=== PATIENT | female | born 1975 | race Caucasian/White ===

== ENCOUNTER 2017-10-30 06:26 | Day surgery (SDC) | payer BC ==
[~2017-10-30] VITALS: Ht 149.9 cm; Wt 50.3 kg
[~2017-10-30 06:26] MED LIST: BUSPAR7.5 MG PO; IMITREX25 MG PO; NO HOME MEDS
[2017-10-30 06:45] VITALS: BP 104/56
[2017-10-30 10:10] VITALS: BP 112/57
[2017-10-30 10:49] VITALS: BP 120/58
== END 2017-10-30 11:09 | disposition home or self-care (01) ==
LOC: SDC 06:26
PROC: 0UBC8ZX Excision of Cervix, Via Natural or Artificial Opening Endoscopic, Diagnostic (ICD-10-PCS; principal; 2017-10-30)
DX: D06.9 Carcinoma in situ of cervix, unspecified (principal); E06.3 Autoimmune thyroiditis; Z97.5 Presence of (intrauterine) contraceptive device; Z87.891 Personal history of nicotine dependence
CPT/HCPCS: 88305; 88307; 93005; J0690; J1100; J1885; J2765; J3010; S0020